=== PATIENT | male | born 1970 | race Caucasian/White ===

== ENCOUNTER 2016-08-14 21:22 | Emergency (ER) | payer OTHER ==
[~2016-08-14] VITALS: Ht 172.7 cm; Wt 111.1 kg
[~2016-08-14 21:22] MED LIST: AMLODIPINE BESY10 M1 PO; LISINOPRIL-HCT1 EACH PO; METFORMIN HCL1000 M1 PO; PIOGLITAZONE HC30 M1 PO
[2016-08-14 21:25] VITALS: BP 103/70
--- NOTE | 2016-08-14 22:00 | RADIOLOGY REPORT ---
EXAMINATION: XR ANKLE, LEFT CLINICAL INFORMATION: Left ankle swelling. COMPARISON: None TECHNIQUE: AP, lateral, and mortise views of the left ankle. FINDINGS: On lateral view there is a small linear ossification at the dorsum of the foot adjacent to the navicular bone that is suspected to be due to a small avulsion fracture. There is edema and soft tissue swelling around the ossification. Correlate with point tenderness. The ankle mortise is congruent. No fracture of the malleoli. IMPRESSION: Suspected small avulsion fracture from the navicular bone at the dorsum of the foot at the talonavicular joint. Correlate with point tenderness.
--- NOTE | 2016-08-14 22:34 | ED ANKLE/FOOT INJURY COMPLAINT ---
History of Present Illness General Chief Complaint: Foot or Ankle Injury Stated Complaint: L ANKLE PAIN Source: patient Exam Limitations: no limitations Allergies Coded Allergies: No Known Allergies (08/31/15) Triage Note: PT STATES THAT HE ROLLED HIS L ANKLE 30 MINUTES AGO, PAIN AND SWELLING REFUSES MEDS AT TRIAGE Triage Nurses Notes Reviewed? yes HPI: This patient is a 38-year-old male who presented to the emergency department today for evaluation of left foot pain status post fall. The patient reported that he was trying to get his cat who jumped off a window when he stepped off of a ledge outside and twisted his foot. He reported that he heard a crack. He is having 7 out of 10 pain across the top of his foot which is nonradiating, constant, and throbbing. No palliative factors. The patient reported that the pain is worse with ambulation. He has not taken any medication for the pain. He denied any knee pain or hip pain. He did not hit his head or lose consciousness. (CHRISTINA AYALA,LIZBETH) Vital Signs & Intake/Output Vital Signs & Intake/Output Vital Signs Date Time Temp Pulse Resp B/P Pulse O2 O2 Flow FiO2 Ox Delivery Rate 08/14 2124 97.4 96 18 103/70 98 Room Air ED Intake and Output 08/15 0000 08/14 1200 Intake Total Output Total Balance Patient 245 lb Weight Reconcile Medications Amlodipine Besylate 10 MG TABLET 1 TAB PO DAILY HTN (Reported) Lisinopril/Hydrochlorothiazide (Lisinopril-Hctz 20-12.5 MG Tab) 1 EACH TABLET 1 TAB PO DAILY HTN (Reported) Metformin HCl 1,000 MG TABLET 1 TAB PO DAILY DIABETES (Reported) Pioglitazone HCl 30 MG TABLET 1 TAB PO DAILY DIABETES (Reported) Tramadol HCl 50 MG TABLET 1 TAB PO BIDP PRN pain (RIOS ISLAS,JUAN J Lott) Past History Travel History Traveled to [place] past 21 day No Medical History Any Pertinent Medical History? see below for history Neurological: NONE EENT: NONE Cardiovascular: hypertension, hyperlipidemia Respiratory: NONE Gastrointestinal: NONE Hepatic: NONE Renal: NONE Musculoskeletal: NONE Psychiatric: NONE Endocrine: diabetes Blood Disorders: NONE Cancer(s): NONE WARRANTY ADMINISTRATOR/Reproductive: NONE Surgical History Surgical History: non-contributory Psychosocial History What is your primary language [place] Tobacco Use: Never used ETOH Use: denies use Illicit Drug Use: denies illicit drug use Family History Hx Contributory? No (LIZBETH VASQUEZ PA-C) Review of Systems Review of Systems Constitutional: Reports: no symptoms. EENTM: Reports: no symptoms. Respiratory: Reports: no symptoms. Cardiovascular: Reports: no symptoms. GI: Reports: no symptoms. Musculoskeletal: Reports: see HPI. Skin: Reports: no symptoms. Neurological/Psychological: Reports: no symptoms. All Other Systems: Reviewed and Negative (LIZBETH VASQUEZ PA-C) Physical Exam Physical Exam Leg/Knee/Thigh Left: normal range of motion, normal inspection Comments: Well-developed well-nourished person in no acute distress HEENT: Head normocephalic/atraumatic, moist mucous membranes Neck: Supple, no lymphadenopathy Back: Antalgic gait Respiratory: No respiratory distress. Speaking in full sentences Left foot/ankle: Mild amount of ecchymosis and edema noted to the dorsum of the foot on the lateral aspect. No overlying erythema. No bony or muscular deformities appreciated. Full range of motion of the ankle. Tenderness to palpation over the dorsum of the foot. Dorsalis pedis and posterior tibialis pulses 2+ and strong. Capillary refill less than 2 seconds Neuro: Alert and oriented x3 Psych: Mood affect normal, normal memory normal judgment. Skin: Warm and dry, no rash on exposed skin (LIZBETH VASQUEZ PA-C) Progress Differential Diagnosis: fracture, dislocation, sprain, contusion, compartmental syndrome Diagnostic Imaging: Viewed by Me: Radiology Read. Discussed w/RAD: Radiology Read. Radiology Impression: PATIENT: JUAN J DE LA CRUZ PRESENT AGE: 46 PATIENT ACCOUNT NO: [id number] : 66 LOCATION: [facility] ORDERING PHYSICIAN: GLADIS MILLER DO (TBS) SERVICE DATE: 08/14/16 EXAM TYPE: RAD - XRY-ANKLE 3 OR MORE VIEWS L EXAMINATION: XR ANKLE, LEFT CLINICAL INFORMATION: Left ankle swelling. COMPARISON: None TECHNIQUE: AP, lateral, and mortise views of the left ankle. FINDINGS: On lateral view there is a small linear ossification at the dorsum of the foot adjacent to the navicular bone that is suspected to be due to a small avulsion fracture. There is edema and soft tissue swelling around the ossification. Correlate with point tenderness. The ankle mortise is congruent. No fracture of the malleoli. IMPRESSION: Suspected small avulsion fracture from the navicular bone at the dorsum of the foot at the talonavicular joint. Correlate with point tenderness. DICTATED BY: NAVARRO PEREIRA MD DATE/TIME DICTATED:08/14/162154 WARP STARTER:SAM DATE/TIME TRANSCRIBED:08/14/162154 CONFIDENTIAL, DO NOT COPY WITHOUT APPROPRIATE AUTHORIZATION. <Electronically signed in Other Vendor System> SIGNED BY: NAVARRO PEREIRA MD 08/14/162199 (LIZBETH VASQUEZ PA-C) Plan of Care: Orders Procedure Date/time Status Durable Medical Equipment 08/14 2233 Active Departure Departure Disposition: HOME OR SELF CARE Condition: Stable Clinical Impression Primary Impression: Navicular fracture of ankle Qualifiers: Encounter type: initial encounter Fracture type: closed Fracture alignment: nondisplaced Laterality: left Qualified Code: S92.255A - Nondisplaced fracture of navicular [scaphoid] of left foot, initial encounter for closed fracture Referrals: SELVIN ANTONY MD (PCP/Family) SELVIN POOLE MD Additional Instructions: Please take medication for pain as prescribed. Use the boot and crutches provided to you to remain nonweightbearing until you follow up with the orthopedic physician whose information has been provided to you in this packet. You may apply ice to the affected area for 15-20 minutes, 3-4 times a day. He may take [id number] ibuprofen for inflammation. Elevate your foot when possible. Return for any worsening symptoms or concerns. Departure Forms: Customer Survey General Discharge Information Prescriptions: Current Visit Scripts Tramadol HCl 1 TAB PO BIDP PRN pain #10 TAB (LIZBETH VASQUEZ PA-C) PA/MUSIC PRODUCER Co-Sign Statement Statement: ED Attending supervision documentation- [] I saw and evaluated the patient. I have also reviewed all the pertinent lab results and diagnostic results. I agree with the findings and the plan of care as documented in the PA's/MUSIC PRODUCER's documentation. [X] I have reviewed the ED Record and agree with the PA's/MUSIC PRODUCER's documentation. [] Additions or exceptions (if any) to the PAs/MUSIC PRODUCER's note and plan are summarized below: [] (RIOS ISLAS,JUAN J Lott)
[2016-08-14] MEDS ORDERED: TRAMADOL HCL50 M1 PO (22:38)
== END 2016-08-14 22:53 ==
LOC: ERH 21:22
DX: S92.252A Displaced fracture of navicular [scaphoid] of left foot, initial encounter for closed fracture (principal); W19.XXXA Unspecified fall, initial encounter; Y92.9 Unspecified place or not applicable; Y93.9 Activity, unspecified
CPT/HCPCS: 73610-LT